=== PATIENT | male | born 1935 | race Caucasian/White ===

== ENCOUNTER 2020-01-04 19:34 | Emergency (ER) | payer MEDICARE ==
[~2020-01-04] VITALS: Ht 172.7 cm; Wt 80.0 kg
--- NOTE | 2020-01-04 19:39 | PHYS DOC ---
Past History Past Medical History: Arthritis, Arrhythmia, CAD, Hypertension Past Surgical History: Angioplasty, Coronary Bypass Surgery, Pacemaker General Adult EDM: Chief Complaint: LACERATION/AVULSION HPI: HPI: ".. That vein or blood vessel on the Lt. ankle just started bleeding...I could not get it to stop.. I am on blood thinners for my heart you see...I even tried to cut off the vein bump ... it just started bleeding more..I just could not get it to stop bleeding.. " Patient is a 84 year old male who presents with above hx and complaints of bleeding from varicose vein. Lt. ankle. Pt. has a S shaped Varicosity Lt. ankle area approximately 4 cm with at least 4 bleeding sites. Pt. is on Eliquist and aspirin for cardiac issues. Pt. states tetanus is upto date. Pt. could not get the bleeding to stop. Pt. normally follow s at [place] and [facility] for cardiac issues. Review of Systems: Review of Systems: Constitutional: Denies fever or chills Eyes: Denies change in visual acuity HENT: Denies nasal congestion or sore throat Respiratory: Denies cough or shortness of breath Cardiovascular: Denies chest pain or edema GI: Denies abdominal pain, nausea, vomiting, bloody stools or diarrhea : Denies dysuria Musculoskeletal: Denies back pain or joint pain Integument: Denies rash -bleeding varicosity left ankle Neurologic: Denies headache, focal weakness or sensory changes Endocrine: Denies polyuria or polydipsia Lymphatic: Denies swollen glands Psychiatric: Denies depression or anxiety Heart Score: Risk Factors: Risk Factors: DM, Current or recent (<one month) smoker, HTN, HLP, family history of CAD, obesity. Risk Scores: Score 0 - 3: 2.5% MACE over next 6 weeks - Discharge Home Score 4 - 6: 20.3% MACE over next 6 weeks - Admit for Clinical Observation Score 7 - 10: 72.7% MACE over next 6 weeks - Early Invasive Strategies Family History: Family History: Non-contributory Current Medications: Current Meds: See Nursing for home meds. Allergies: Allergies: Allergic PCN's Physical Exam: PE: Constitutional: , no acute distress, non-toxic appearance. [] HENT: Normocephalic, atraumatic, bilateral external ears normal, oropharynx moist, no oral exudates, nose normal. [] Eyes: PERRLA, EOMI, conjunctiva normal, no discharge. [] Neck: Normal range of motion, no tenderness, supple, no stridor. [] Cardiovascular:Heart rate regular rhythm, no murmur [, PMI to Lt. ] Lungs & Thorax: Bilateral breath sounds clear to auscultation []Mid line scar. Pacer/Defib. Abdomen: Bowel sounds normal, soft, no tenderness, no masses, no pulsatile masses. [] Skin: Warm, dry, no erythema, no rash. Poor turgor. Venous stasis in lower leg. Has several spider varicosities. Has one S shaped spider varicosity appears to be bleeding from 4 points. Vessel approximately 4 cm long. Back: No tenderness, no CVA tenderness. [] Extremities: No tenderness, no cyanosis, no clubbing, ROM intact, no edema. Arthritic changes. Neurologic: Alert and oriented X 3, normal motor function, normal sensory function, no focal deficits noted. [] Psychologic: Affect anxious judgement normal, mood normal. [] EKG: EKG: [] Radiology/Procedures: Radiology/Procedures: [] Course & Med Decision Making: Course & Med Decision Making Pertinent Labs and Imaging studies reviewed. (See chart for details) []Wound care note: Area of bleeding varicosity cleaned with Betadine and injected with Lidocaine 2% with epi. Suture with 4-0 Vicryl x 8 and dressing with gel foam. Vessel was oversewed to achieve hemostasis. Pt. keep area clean and dry. If becomes wet remove immediately or remove in 3 days. Apply polysporin 4 x day. Hold Aspirin x 1 dose. and Eliquist x 1 dose. Return if any concerns. Follow up with primary. Elevate leg tonight. Site may bleed through the dressing -no need to change dressing tonight. If any concerns return. 1. Bleeding varicosity left leg ankle 4 cm Cecil Disclaimer: Cecil Disclaimer: This electronic medical record was generated, in whole or in part, using a voice recognition dictation system. Departure Departure: Disposition: HOME/RESIDENCE PRIOR TO ADM Condition: STABLE Justification of Admission: Justification of Admission: Justification of Admission Dx: N/A Cecil Disclaimer This chart was dictated in whole or in part using Voice Recognition software in a busy, high-work load, and often noisy Emergency Department environment. It may contain unintended and wholly unrecognized errors or omissions. Dragon Disclaimer This chart was dictated in whole or in part using Voice Recognition software in a busy, high-work load, and often noisy Emergency Department environment. It may contain unintended and wholly unrecognized errors or omissions. MAYO HILLMAN MD Jan 04, 2020 19:39
[2020-01-04] MEDS ORDERED: LIDOCAINE 2%/EPI 1:100,000 20 ML VIAL. IJ ONE (19:45)
[2020-01-04] MEDS ORDERED: GELATIN SPONGE SIZE 12-7MM SPONGE. TP ONE (19:45)
[2020-01-04 19:47] VITALS: BP 95/48
== END 2020-01-04 20:40 | disposition home or self-care (01) ==
LOC: ER 19:34
DX: I83.892 Varicose veins of left lower extremity with other complications (principal); I10 Essential (primary) hypertension; M19.90 Unspecified osteoarthritis, unspecified site; I25.810 Atherosclerosis of coronary artery bypass graft(s) without angina pectoris; Z98.61 Coronary angioplasty status; Z95.0 Presence of cardiac pacemaker; Z88.0 Allergy status to penicillin
CPT/HCPCS: 37799; 99284

== ENCOUNTER 2020-01-23 18:43 | Observation (INO) | payer MEDICARE ==
[~2020-01-23] VITALS: Ht 172.7 cm; Wt 69.5 kg
--- NOTE | 2020-01-23 18:45 | PHYS DOC ---
Past History Past Medical History: A-Fib, Arthritis, Arrhythmia, CAD, Hypertension, [place] Past Surgical History: Angioplasty, Coronary Bypass Surgery, Pacemaker Additional Past Surgical Histo: LEFT HIP SX, BACK SX Alcohol Use: Occasionally General Adult EDM: Chief Complaint: MECHANICAL FALL HPI: HPI: ".. I was out doing trim work on the bushes... and I guess I passed out or got really dizzy...... and hit my face... ripped up my nose... ".."The bushes are red in the fall.. I was working on trim at bottom.. then I got on a step stool.. then got on the 6 foot step ladder.. but it was on an angle.. but I finally realized... it was too unstable... well any way.. I only ate breakfeast... and I probably did not drink enough today... but I guess I got dizzy.. and lizzy passed out ...smashed my nose... I think you where the doctor that suture up my leg the other day... that went pretty well... but I probably need some sutures to this nose... I tried to clean it up.... push the skin back in place... that did not work well.. other than my face.. and bleeding will not stop.. I didnt hurt anything else...." Patient is a 84 year old male who presents with above hx and complaints syncope, contusion to face and nasal laceration. Patient does not remember events prior to the syncope such as fast heart rate, dysrhythmia or his defibrillator going off. Does not know what he hit his nose . Patient does remember being dizziness. 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 Patient normally follows at [place]. Patient is on anticoagulants baby aspirin and Eliquis for A. fib. He also has followed with cardiology at and [facility].. Patient denies any recent changes in meds. Patient has obvious contusions to face bite hicks on tongue and a 6 cm flap laceration to bridge of nose. Patient denies any other injuries currently. Review of Systems: Review of Systems: Constitutional: Denies fever or chills Eyes: Denies change in visual acuity HENT: Denies nasal congestion or sore throat Complaints of head injury. Respiratory: Denies cough or shortness of breath Cardiovascular: Denies chest pain or edema GI: Denies abdominal pain, nausea, vomiting, bloody stools or diarrhea : Denies dysuria Musculoskeletal: Denies back pain or joint pain Integument: Denies rash Neurologic: Denies headache, focal weakness or sensory changes Hx. Dizzy and syncope,. Endocrine: Denies polyuria or polydipsia Lymphatic: Denies swollen glands Psychiatric: Denies depression or anxiety Heart Score: HEART Score for Chest Pain: HEART Score for Chest Pain Response (Comments) Value History Moderately Suspicious 1 ECG Nonspecific Repolarizatio 1 Age > 65 2 Risk Factors 1 or 2 Risk Factors 1 Troponin >1-<3x Normal Limit 1 Total 6 Risk Factors: Risk Factors: DM, Current or recent (<one month) smoker, HTN, HLP, family history of CAD, obesity. Risk Scores: Score 0 - 3: 2.5% MACE over next 6 weeks - Discharge Home Score 4 - 6: 20.3% MACE over next 6 weeks - Admit for Clinical Observation Score 7 - 10: 72.7% MACE over next 6 weeks - Early Invasive Strategies Family History: Family History: Noncontributory to presentation Current Medications: Current Meds: See nursing for home meds Allergies: Allergies: Allergies Coded Allergies Type Severity Reaction Last Updated Verified Penicillins Allergy Intermediate 01/04/20 Yes Physical Exam: PE: Constitutional: Mild distress, non-toxic appearance. [] HENT: Normocephalic, contusions to the face, 6 cm nasal flap laceration, bilateral external ears normal, oropharynx moist, no oral exudates, nose epistaxis stable. . No septal hematoma. Bilateral hearing aids. TMs clear. Very hard of hearing with hearing aids out. Eyes: PERRLA, EOMI, conjunctiva normal, no discharge. [] Neck: Normal range of motion, no tenderness, supple, no stridor. [] No bruits appreciated Cardiovascular: Irregular heart rate irregular rhythm, no murmur [] PMI to the center and right. Lungs & Thorax: Bilateral breath sounds equal apex on auscultation [. There are some] scattered wheezes and rails. Pacer defibrillator on left Abdomen: Bowel sounds normal, soft, no tenderness, no masses, no pulsatile masses. [] Skin: Warm, dry, no erythema, no rash. Contusions. Venous stasis changes in the legs. Old scars. Back: No tenderness, no CVA tenderness. [] Extremities: No tenderness, no cyanosis, no clubbing, ROM intact, no edema. Arthritic changes. Old scars. Venous stasis. Lt. hip scar. Neurologic: Alert and oriented X 3, n moves all extremities on request has distal sensory, no gross focal deficits noted. [] Psychologic: Affect normal, judgement normal, mood normal. [] EKG: EKG: My interpretation EKG shows a irregular rhythm with no obvious P waves. There is right axis deviation and RVH . PVCs [] Abnormal EKG Radiology/Procedures: Radiology/Procedures: [place] [address] IMAGING REPORT Signed PATIENT: DEB SPANN ACCOUNT: [id number] : 1935 LOCATION: ER AGE: 84 SEX: M EXAM STATUS: REG ER ORD. PHYSICIAN: MAYO HILLMAN MD REASON: Syncope, head injury, neck pain PROCEDURE: CT CERVICAL SPINE WO CONTRAST CT head without contrast. Maxillofacial CT without contrast. CT cervical spine without contrast. HISTORY: Syncope, headache, facial abrasions, dizziness. CT head findings: At the left cerebellum there is linear defect likely chronic infarct associated with a 1 cm dense intra-axial calcification of the cerebellum, this may be the sequela of an old infectious or inflammatory process including chronic neurocysticercosis. Mild generalized brain atrophy. No intracranial hemorrhage, mass effect, hydrocephalus or acute ischemic change evident. Bilateral maxillary sinus opacification. Orbits, mastoids and bones are unremarkable. IMPRESSION: No acute intracranial CT abnormality. Maxillofacial CT findings: Opacification and wall hypertrophy of the bilateral maxillary sinuses as well as some calcification in the right maxillary sinus which could indicate calcified inspissated secretions or a mycetoma, or could indicate an allergic fungal sinusitis. No facial bone fracture. Bony orbits intact. Mandible and maxilla intact. No orbital edema or hematoma. IMPRESSION: Facial bones intact. Maxillary sinus opacification and wall hypertrophy bilaterally as well as calcifications within the right maxillary sinus indicating chronic sinus disease, the calcification could represent a mycetoma or could be the sequela of allergic fungal sinusitis. CT cervical spine findings: Arthritic change C1-C2 atlantodental articulation with extensive bone cysts and mild bone spurring with exuberant joint capsule thickening calcification could be due to crystalline arthropathy, the joint capsule thickening may contribute to borderline spinal canal stenosis. Craniocervical junction intact. Cervical vertebral body height and alignment intact. No fracture of the cervical spine. Marked disc height loss at C5-C6 and C6-C7, multilevel cervical disc protrusions, disc osteophytes and uncovertebral and facet spurs with spinal canal and neural foraminal stenoses. Lung apices demonstrate motion artifact however there is probable centrilobular nodularity diffusely. Paraspinal tissues unremarkable. IMPRESSION: 1. No acute osseous injury of the cervical spine. 2. Cervical disc disease is present. 3. Apical centrilobular nodularity suggestive of endobronchial infectious or inflammatory process. ][address] [id number] IMAGING REPORT Signed PATIENT: DEB SPANN ACCOUNT: [id number] : 1935 LOCATION: ER AGE: 84 SEX: M EXAM STATUS: REG ER ORD. PHYSICIAN: MAYO HILLMAN MD REASON: Weakness, chest pain from fall, syncope PROCEDURE: CHEST PA & LATERAL EXAM: CHEST 2 VIEWS. HISTORY: Weakness, chest pain, syncope. COMPARISON: None. FINDINGS: Frontal and lateral views of the chest are obtained. A left-sided pacemaker/defibrillator has its leads in the right atrium, right ventricle and a left cardiac vein. Epicardial pacer pads and leads are noted. There are changes of coronary artery bypass grafting. There are no confluent infiltrates. There is no pneumothorax or pleural effusion. The heart is mildly enlarged. There are atherosclerotic calcifications of the aorta. IMPRESSION: 1. Mild cardiomegaly. Electronically signed by: Mark Coronado MD (01/23/2020 7:29 PM) [facility] DICTATED AND SIGNED BY: LALITA CORONADO MD DATE: 01/23/201928 CC: MAYO HILLMAN MD; PCP,UNKNOWN ~ Course & Med Decision Making: Course & Med Decision Making Pertinent Labs and Imaging studies reviewed. (See chart for details) Procedure note- Laceration repair-laceration cleaned with normal saline and Betadine along edges. Injected laceration with lidocaine 2%. Irrigated with normal saline. Close laceration was 6 Prolene 6-0 simple sutures. The skin was a avulsion type laceration and very thin. At least one half of the laceration flap appeared to be avascular. Bactracin applied. Discussed presentation, testing and treatment plan with , Plan admission for further eval. and tx. Plan Cardiology and Neuro consults. Impression: 1. Head injury-contusion 2. Nasal laceration 6 cm 3. Syncope 4. Elevated BUN and creatinine 28/1.4 5.. Diabetes glucose 145 6. Elevated troponin 0.148 7. Elevated d-dimer 2.0 (patient on anticoagulation Eliquis and aspirin) 8. BNP 2263-CHF diastolic dysfunction 9. Elevated bili direct and total 0.7 /1.3, AST 45, alk [id number] 10. Anemia hemoglobin 9.7 11. History of A. fib 12. Elevated D-dimer 2.0 [] Dragon Disclaimer: Dragon Disclaimer: This electronic medical record was generated, in whole or in part, using a voice recognition dictation system. Departure Departure: Disposition: 01 HOME/RESIDENCE PRIOR TO ADM Condition: STABLE Referrals: PCP,UNKNOWN (PCP) Justification of Admission: Justification of Admission: Justification of Admission Dx: Yes CHF: Cardiac Arrhythmias Dragon Disclaimer This chart was dictated in whole or in part using Voice Recognition software in a busy, high-work load, and often noisy Emergency Department environment. It may contain unintended and wholly unrecognized errors or omissions. Dragon Disclaimer This chart was dictated in whole or in part using Voice Recognition software in a busy, high-work load, and often noisy Emergency Department environment. It may contain unintended and wholly unrecognized errors or omissions. Dragon Disclaimer This chart was dictated in whole or in part using Voice Recognition software in a busy, high-work load, and often noisy Emergency Department environment. It may contain unintended and wholly unrecognized errors or omissions. MAYO HILLMAN MD Jan 23, 2020 18:45
[2020-01-23] MEDS ORDERED: LIDOCAINE 2% 20 ML VIAL. IJ ONE (19:15)
[2020-01-23] MEDS ORDERED: BACITRACIN ZINC TOPICAL OINT PACKET. TP ONE (19:15)
[2020-01-23 19:22] LABS: BASO # 0.1 x10^3/uL (0.0-0.2); BASO % 2 % (0-3); EOS # 0.1 x10^3/uL (0.0-0.7); EOS % 1 % (0-3); HEMATOCRIT 30.1 % (39.0-53.0); HEMOGLOBIN 9.7 g/dL (13.0-17.5); LYMPH # 0.8 x10^3/uL (1.0-4.8); LYMPH % 14 % (24-48); MEAN CORPUSCULAR HEMOGLOBIN 31 pg (25-35); MEAN CORPUSCULAR HGB CONC 32 g/dL (31-37); MEAN CORPUSCULAR VOLUME 95 fL (79-100); MONO # 0.7 x10^3/uL (0.0-1.1); MONO % 13 % (0-9); NEUT # 3.9 x10^3uL (1.8-7.7); NEUT % 70 % (31-73); PLATELET COUNT 186 x10^3/uL (140-400); RED BLOOD COUNT 3.15 x10^6/uL (4.30-5.70); RED CELL DISTRIBUTION WIDTH 16.8 % (11.5-14.5); WHITE BLOOD COUNT 5.6 x10^3/uL (4.0-11.0)
[2020-01-23 19:27] LABS: CALCIUM 8.6 mg/dL (8.5-10.1); CREATININE 1.4 mg/dL (0.7-1.3); GFR 48.3; POTASSIUM 4.3 mmol/L (3.5-5.1)
--- NOTE | 2020-01-23 19:32 | RAD ---
EXAM: CHEST 2 VIEWS. HISTORY: Weakness, chest pain, syncope. COMPARISON: None. FINDINGS: Frontal and lateral views of the chest are obtained. A left-sided pacemaker/defibrillator has its leads in the right atrium, right ventricle and a left cardiac vein. Epicardial pacer pads and leads are noted. There are changes of coronary artery bypass grafting. There are no confluent infiltrates. There is no pneumothorax or pleural effusion. The heart is mildly enlarged. There are atherosclerotic calcifications of the aorta. IMPRESSION: 1. Mild cardiomegaly. Electronically signed by: Mark Coronado MD (01/23/2020 7:29 PM) [facility]
[2020-01-23 19:38] LABS: ALBUMIN 3.2 g/dL (3.4-5.0); C REACTIVE PROTEIN 3.9 mg/L (0-3.3); DIRECT BILIRUBIN 0.7 mg/dL (0.0-0.2); MAGNESIUM 2.1 mg/dL (1.8-2.4); TOTAL BILIRUBIN 1.3 mg/dL (0.2-1.0); TOTAL PROTEIN 6.9 g/dL (6.4-8.2)
[2020-01-23] MEDS: IV RINGERS SOLUTION,LACTATED 1,000 ML IV SCH ×2 (19:50→20:02)
[2020-01-23] MEDS ORDERED: DIPH,PERTUSS(ACELL),TET VAC/PF 0.5 ML SYRINGE. VAX IM ONE (20:00)
--- NOTE | 2020-01-23 20:26 | RAD ---
CT head without contrast. Maxillofacial CT without contrast. CT cervical spine without contrast. HISTORY: Syncope, headache, facial abrasions, dizziness. CT head findings: At the left cerebellum there is linear defect likely chronic infarct associated with a 1 cm dense intra-axial calcification of the cerebellum, this may be the sequela of an old infectious or inflammatory process including chronic neurocysticercosis. Mild generalized brain atrophy. No intracranial hemorrhage, mass effect, hydrocephalus or acute ischemic change evident. Bilateral maxillary sinus opacification. Orbits, mastoids and bones are unremarkable. IMPRESSION: No acute intracranial CT abnormality. Maxillofacial CT findings: Opacification and wall hypertrophy of the bilateral maxillary sinuses as well as some calcification in the right maxillary sinus which could indicate calcified inspissated secretions or a mycetoma, or could indicate an allergic fungal sinusitis. No facial bone fracture. Bony orbits intact. Mandible and maxilla intact. No orbital edema or hematoma. IMPRESSION: Facial bones intact. Maxillary sinus opacification and wall hypertrophy bilaterally as well as calcifications within the right maxillary sinus indicating chronic sinus disease, the calcification could represent a mycetoma or could be the sequela of allergic fungal sinusitis. CT cervical spine findings: Arthritic change C1-C2 atlantodental articulation with extensive bone cysts and mild bone spurring with exuberant joint capsule thickening calcification could be due to crystalline arthropathy, the joint capsule thickening may contribute to borderline spinal canal stenosis. Craniocervical junction intact. Cervical vertebral body height and alignment intact. No fracture of the cervical spine. Marked disc height loss at C5-C6 and C6-C7, multilevel cervical disc protrusions, disc osteophytes and uncovertebral and facet spurs with spinal canal and neural foraminal stenoses. Lung apices demonstrate motion artifact however there is probable centrilobular nodularity diffusely. Paraspinal tissues unremarkable. IMPRESSION: 1. No acute osseous injury of the cervical spine. 2. Cervical disc disease is present. 3. Apical centrilobular nodularity suggestive of endobronchial infectious or inflammatory process. Exposure: One or more of the following individualized dose reduction techniques were utilized for this examination: 1. Automated exposure control 2. Adjustment of the mA and/or kV according to patient size 3. Use of iterative reconstruction technique Electronically signed by: Marcelo Garcia MD (01/23/2020 8:23 PM) [facility]
--- NOTE | 2020-01-23 20:28 | EKG ---
[address] [address] Test Date: 2020-01-23 Test Time: 18:55:14 Pat Name: DEB SPANN Department: Room: Gender: M [employer]ing [employer] Fe[employer] Automatic: : 1935 Requested By: MAYO HILLMAN Order Number: [id number] Reading MD: Measurements Intervals [place] Rate: 78 P: GA: QRS: 150 QRSD: 120 T: -9 QT: 412 QTc: 474 Interpretive Statements IRREGULAR RHYTHM, NO P-WAVE FOUND ABNORMAL RIGHT AXIS DEVIATION RVH WITH REPOLARIZATION ABNORMALITY ABNORMAL ECG RI6.02 No previous ECG available for comparison
[2020-01-23] MEDS ORDERED: ONDANSETRON PF 4 MG/2 ML VIAL. IVP PRN (22:00)
[2020-01-23] MEDS ORDERED: ACETAMINOPHEN 325 MG TABLET PO PRN (22:00)
[2020-01-23 23:29] VITALS: BP 113/73
[2020-01-24] MEDS ORDERED: MULT-246 PO (01:04)
[2020-01-24] MEDS ORDERED: DIGO125T17 PO (01:04)
[2020-01-24] MEDS ORDERED: APIX5TAB3 PO (01:04)
[2020-01-24] MEDS ORDERED: ASPI-630 PO (01:04)
[2020-01-24] MEDS ORDERED: CALC500T30 PO (01:04)
[2020-01-24] MEDS ORDERED: FURO-69 PO (01:04)
[2020-01-24] MEDS ORDERED: SPIR25TA5 PO (01:04)
[2020-01-24] MEDS ORDERED: POTA20TA4 PO (01:04)
[2020-01-24] MEDS ORDERED: CRESTOR20 MG PO (01:04)
[2020-01-24] MEDS ORDERED: FURO-68 PO (01:04)
[2020-01-24] MEDS ORDERED: IPRATRPIUM/ALBUTEROL 0.5/2.5MG 3 ML NEBU. ONE (04:55)
[2020-01-24] MEDS: IPRATRPIUM/ALBUTEROL 0.5/2.5MG 3 ML NEBU. NEB SCH ×3 (05:04→15:23)
[2020-01-24 05:57] VITALS: BP 104/63
[2020-01-24 06:20] LABS: BASO # 0.1 x10^3/uL (0.0-0.2); BASO % 1 % (0-3); EOS # 0.1 x10^3/uL (0.0-0.7); EOS % 2 % (0-3); HEMATOCRIT 27.9 % (39.0-53.0); HEMOGLOBIN 9.1 g/dL (13.0-17.5); LYMPH # 0.9 x10^3/uL (1.0-4.8); LYMPH % 19 % (24-48); MEAN CORPUSCULAR HEMOGLOBIN 31 pg (25-35); MEAN CORPUSCULAR HGB CONC 33 g/dL (31-37); MEAN CORPUSCULAR VOLUME 95 fL (79-100); MONO # 0.8 x10^3/uL (0.0-1.1); MONO % 16 % (0-9); NEUT # 2.9 x10^3uL (1.8-7.7); NEUT % 62 % (31-73); PLATELET COUNT 163 x10^3/uL (140-400); RED BLOOD COUNT 2.95 x10^6/uL (4.30-5.70); RED CELL DISTRIBUTION WIDTH 16.5 % (11.5-14.5); WHITE BLOOD COUNT 4.7 x10^3/uL (4.0-11.0)
[2020-01-24 06:23] LABS: CALCIUM 8.1 mg/dL (8.5-10.1); CREATININE 1.2 mg/dL (0.7-1.3); GFR 57.7
--- NOTE | 2020-01-24 09:28 | RAD ---
Study: BILATERAL DUPLEX CAROTID SONOGRAPHY History: Syncope. Technique: Duplex sonography of the cervical portion of both carotid arteries was performed. Real-time grayscale, color flow Doppler, and Doppler spectral waveform analysis is performed. Findings: Right side: Peak systolic flow velocity of the CCA is 60 to cm/sec. Peak systolic flow velocity of the ICA is 54 cm/sec. The ICA/CCA ratio is 0.77. Peak end diastolic flow velocity of the ICA is 18 cm/sec. The peak systolic velocity of the ECA is 49 cm/sec. Mild echogenic atheromatous plaque such as at the mid common carotid artery. No visible stenosis. Left side: Peak systolic flow velocity of the CCA is 64 cm/sec. Peak systolic flow velocity of the ICA is 47 cm/sec. The ICA/CCA ratio is 0.61. Peak end diastolic flow velocity of the ICA is 17 cm/sec. Peak systolic flow velocity of the ECA is 45 cm/sec. Greater extent of atheromatous plaque relative to the right but without a visible flow-limiting stenosis. Vertebral arteries: Bilateral vertebral arteries demonstrate antegrade flow. IMPRESSION: Left more so than right carotid system atheromatous plaque but there is no hemodynamically significant carotid stenosis. Antegrade vertebral artery flow. PQRS Compliance Statement - Stenosis calculations for CT, MR and conventional angiography are based upon measurement of the distal ICA diameter in accordance with the NASCET methodology. Stenosis calculations for carotid ultrasound studies are derived from validated velocity criteria which are known to correlate with the NASCET methodology. Electronically signed by: RASHAWN DAVIS MD (01/24/2020 9:26 AM) [id number]
--- NOTE | 2020-01-24 10:38 | CONS ---
DATE OF CONSULTATION: 01/24/2020 REFERRING PHYSICIAN: Dr. Castillo CHIEF COMPLAINT: "I got dizzy and fell." HISTORY OF PRESENT ILLNESS: This is an 84-year-old right-handed male who was admitted through Emergency Room after he presented with a fall yesterday while trimming his bushes at home. According to the patient, he felt dizzy, described as unsteadiness. Subsequently, he fell forwards on hard ground, resulted in nasal abrasion and bleed. The patient denies any symptoms of chest pain, shortness of breath or palpitation prior to the fall; however, apparently, he lost his consciousness for unknown period of time, but he was able to crawl and finally stood up without any assistance. Currently, the patient denies headaches, visual disturbances, nausea, vomiting, chest pain, shortness of breath or palpitation. The patient was evaluated in the Emergency Room where initial head CT scan revealed no evidence of acute intracranial process, but it shows chronic sinusitis. EKG revealed absence of P-wave and PVCs and AFib with rate control. The patient stated he had breakfast, but he did not drink much water. PAST MEDICAL HISTORY: Significant for atrial fibrillation, severe osteoarthritis, cardiac arrhythmias, coronary artery disease, hypertension, myocardial infarction, congestive heart failure, anemia. PAST SURGICAL HISTORY: Positive for coronary artery bypass graft in 1989, status post pacemaker placement and defibrillator placement, left hip surgery, angioplasty, and back surgery. FAMILY HISTORY: Mother had pancreatic cancer. Father had myocardial infarction and coronary artery disease. SOCIAL HISTORY: The patient used to be a smoker and he drinks alcohol occasionally. He denies illegal drug use. CURRENT HOME MEDICATIONS: Eliquis 5 mg twice daily, aspirin 81 mg p.o. daily, calcium 500 mg daily, digoxin 125 mcg at bedtime, furosemide 20 mg daily and furosemide 40 mg daily, multivitamins, potassium chloride, Crestor 20 mg daily, spironolactone 12.5 mg daily. ALLERGIES: PENICILLIN. REVIEW OF SYSTEMS: A 10-point review of system was performed as mentioned above in history of present illness, otherwise unremarkable. PHYSICAL EXAMINATION: GENERAL: Well-developed, well-nourished male, not in acute distress. He weighs 69.5 kilos. VITAL SIGNS: Blood pressure 104/63, respiratory rate 18, pulse is 76, temperature 97.4, oxygen saturation 98% on room air. HEENT: Normocephalic with nasal abrasion, otherwise unremarkable. NECK: Supple. Negative for carotid bruit, lymphadenopathy or thyromegaly. LUNGS: Clear to A and P. CARDIOVASCULAR: Irregular rhythm. Normal S1, S2. ABDOMEN: Soft. EXTREMITIES: Negative for cyanosis, clubbing or edema. NEUROLOGIC: Mental Status: The patient is alert and oriented x 3. Speech is fluent. There is no language dysfunction. Memory, judgment, and abstracting thinking are normal. The patient denies hallucination or delusion. Cranial Nerves: Visual green are full. The pupils are reactive to light and accommodation. The extraocular movements are intact. There is no nystagmus. There is no facial motor or sensory deficit. Hearing is intact bilaterally. The palate is elevated symmetrically. Sternocleidomastoid muscles are powerful bilaterally. The patient shrugs his shoulders symmetrically, protrudes his tongue in the midline without fasciculation or atrophy. Motor: No focal muscle bulk was seen. The tone is normal. The strength is 4/5 throughout. Sensory: Revealed normal pinprick, light touch, vibratory and position senses. Deep tendon reflexes were symmetric and hypoactive with absent Achilles responses. Gait: The patient uses a walker for ambulation; however, the stand is steady. LABORATORY DATA: CBC revealed white blood cells of 4.7 thousand, hemoglobin 9.1, hematocrit 27.9, platelet count 163,000. Chemistry revealed sodium of 134, potassium 4, chloride 101, CO2 of 26, BUN 23, creatinine 1.2, glucose 101 and calcium 8.1. AST is high at 45, ALT is normal with troponin level is 0.147 and elevated NPB at 2263. Coagulation: PT is 14.6 and INR is 1.4. D-dimer is high at 2. DIAGNOSTIC DATA: Initial nonenhanced head CT scan revealed right maxillary sinusitis of chronic type, otherwise no intracranial process and chronic infarct with calcification in the cerebellum probably due to old infections and generalized atrophy. CT of the cervical spine revealed no acute injuries, but shows multilevel disk disease, more prominent at C5-C6 and C6-C7. Chest x-ray revealed no evidence of acute cardiopulmonary process, but it shows cardiomegaly. IMPRESSION: 1. Possible syncope, etiology uncertain, probably due to paroxysmal atrial fibrillation, orthostatic hypotension, non-convulsive seizure and dehydration. 2. Multiple medical problems include diastolic congestive heart failure, severe osteoarthritis, coronary artery disease status post coronary artery bypass graft and status post pacemaker and defibrillator placement. Careful rehydration. RECOMMENDATIONS: 1. Await for the result of carotid Doppler study. 2. Continue with current management initiated by Dr. Castillo. The patient is neurologically stable. 3. We will arrange for electroencephalogram on outpatient basis. M Bree FONTAINE MD DR: GINA/selina JOB#: [id number] / [id number]
[2020-01-24 11:08] VITALS: BP 99/64
--- NOTE | 2020-01-24 12:08 | PN ---
DATE: 01/24/2020 SUBJECTIVE: The patient is resting, slightly propped up in bed, in no apparent distress. On questioning him, he denied any complaint. He has had no further episodes of syncope. He denied any chest pain, shortness of breath, orthopnea or paroxysmal nocturnal dyspnea. Denied any dizziness, lightheadedness, or vertigo. PHYSICAL EXAMINATION: GENERAL: When I examined him, he looked well and was clearly in no apparent respiratory distress. No pallor, jaundice, cyanosis or thyromegaly. No jugular venous distention. No limb edema. VITAL SIGNS: His heart rate was 76, blood pressure was 104/63, temperature was 97.4, respiratory rate was 18 and oxygen saturation was 98%. HEAD, EYES, EARS, NOSE AND THROAT: Shows normocephalic. He has laceration to his nose and contusion to the right side of the face. NECK: Supple. HEART: Showed normal first and second heart sounds. No gallop or murmur. CHEST: Clear to auscultation. No crepitation or rhonchi. ABDOMEN: Scaphoid, soft, nontender. NEUROLOGIC: He was grossly intact. His intake and output are incompletely recorded. LABORATORY DATA: His lab work this morning showed a white cell count of 4700, hemoglobin 9, hematocrit 27, MCV 95, and platelet count of 163,000 with normal manual differential. His chemistry showed a serum sodium 134, potassium 4, chloride 101, bicarbonate 26, anion gap of 7, BUN 23, creatinine 1.2, estimated GFR was 57 mL per minute. His glucose 101 and calcium was 8.1. He has 2 more sets of cardiac enzymes, which showed troponin to be less than 0.017. We have already consulted the neurologist and apparently has had bilateral carotid Doppler ultrasound, which showed that the patient has left more so than right carotid system atheromatous plaque, but there is no hemodynamically significant carotid stenosis, antegrade vertebral artery flow. He has 2 sets of cardiac enzymes, which showed troponin to be 0.147. PLAN: My plan is to check his orthostatics and interrogate his pacemaker defibrillator and await the Cardiology team for evaluation and treatment. SKYLAR MACK MD DR: ANNETTE/selina JOB#: [id number] / [id number]
--- NOTE | 2020-01-24 12:55 | HP ---
ADMIT DATE: 01/23/2020 HISTORY OF PRESENT ILLNESS: The patient is an 84-year-old male patient who presented to the Emergency Room with a complaint of syncope, contusion to his face and nasal laceration. The patient does not remember event prior to the syncope such as fast heart rate, dysrhythmias or atrial fibrillation going off. He does not remember what hit his nose. He does remember being dizzy. He said he just finished trimming work on the bushes, he put his tools to the shade and was going back to the patio to sit and apparently passed out and smashed his nose. He normally follows at the [facility]. He is on anticoagulant in the form of Eliquis and a baby aspirin for atrial fibrillation and his recreation instructor is at [facility]. He cannot remember when was the last time his pacemaker or defibrillator were interrogated and cannot remember any recent stress test or change in his medication. He was evaluated in the Emergency Room and his EKG showed ____ rhythm with no obvious T waves. He has also right axis deviation consistent with right ventricular hypertrophy. CT scan of the head without contrast and maxillofacial CT without contrast as well as CT scan of the cervical spine without contrast, all showed no acute intracranial hemorrhage and the facial bone intact, maxillary sinus opacification and wall hypertrophy bilaterally as well as calcification within the right maxillary sinus indicating chronic sinus disease. The calcification could represent ____ and could be sequelae of allergic fungal sinusitis. The cervical spine CT scan showed no acute osseous injury of cervical spine, the cervical disk disease present, apical centrilobular nodularity suggestive of endobronchial infection or inflammatory process. The patient was admitted to consult the cardiology team as well as the neurologist. PAST MEDICAL HISTORY: Significant for what seemed to be cardiac arrest in 1989, coronary artery disease, status post CABG. He also has what seemed to be congestive heart failure, hyperlipidemia, atrial fibrillation, hypertension and severe osteoarthritis. PAST SURGICAL HISTORY: Significant for coronary artery bypass graft surgery in 1989, status post pacemaker placement and defibrillator placement, at the same year has left hip surgery and angioplasty and back surgery. FAMILY HISTORY: His mother at the age of 70 because of pancreatic cancer. Father in his early 60s because of myocardial infarction, coronary artery disease. Has one sister, recently at the age of 88 and was living in a custodial and one younger brother still live, but lives in [place]. SOCIAL HISTORY: The patient is , has 2 sons and 1 grandson. He quit smoking when he was 25 years old and he drinks alcohol, mostly beer or a wine once every 2-3 weeks with pizza according to him. He denied any illegal drug use. He was in the [employer] for 4 years and after that he worked at [employer] for 38 years. He is currently retired. REVIEW OF SYSTEMS: The patient denies any blurring of vision. He did have bilateral cataract extraction, but denied any glaucoma or macular degeneration. Did complain of astigmatism, right eye. He has bilateral hearing aids. Denied any nosebleeds, stuffy nose or postnasal drip. Denied any sore throat, sore tongue, toothache, hoarseness of voice or difficulty swallowing. Denied any nausea or vomiting. Did complain of constipation. He did complain of nocturia, but nobody told him that he has enlarged prostate. He denied any chest pain, shortness of breath, orthopnea or paroxysmal nocturnal dyspnea. Denied any cough, phlegm or hemoptysis. Denied any dizziness, lightheadedness or vertigo. Did have obviously syncopal episode. PHYSICAL EXAMINATION: GENERAL: On arrival to the Emergency Room, he looked well and was clearly in no apparent respiratory distress. No pallor, jaundice, cyanosis or thyromegaly. No jugular venous distension. No lower limb edema. VITAL SIGNS: His heart rate was 86. His blood pressure was 115/76, temperature was 98.3, respiratory rate was 16 and oxygen saturation was 99%. HEAD, EYES, EARS, NOSE AND THROAT: Showed normocephalic, status post laceration of his contusions to his face and 6 cm nasal flap laceration. Bilateral external ears normal. NECK: Supple. HEART: Showed normal first and second heart sounds. No gallop, rub or murmur. CHEST: Shows central trachea, equal bilateral chest expansion, air entry, vesicular sounds. No crepitation or rhonchi. ABDOMEN: Scaphoid, soft, nontender. NEUROLOGIC: He was awake, alert, responding appropriately. All cranial nerves intact. EXTREMITIES: He moves extremities without difficulty. LABORATORY DATA: His lab work on arrival showed a white cell count 5600, hemoglobin 10, hematocrit 30, MCV 95 and platelet count of 186,000. His chemistry showed a serum sodium 135, potassium 4.3, chloride 98, bicarbonate 25, anion gap of 12. His BUN was 28, creatinine 1.4. His glucose was 145, calcium was 8.6, magnesium 2.1. Total bilirubin is 1.3. AST and alkaline phosphatase is slightly elevated. ALT was normal. His creatinine kinase was ____. C-reactive protein was 3.9. Beta-natriuretic peptide was 2263. Total protein 6.9, albumin was 3.2. Serum lipase was 146. His first troponin was 0.148. His prothrombin time, INR and aPTT were normal. D-dimer was elevated at 2. MEDICATIONS: The patient was on following medications: He was on apixaban 5 mg twice a day, digoxin 125 mcg once a day. He is on Crestor 20 mg at bedtime, spironolactone 12.5 mg at noon, aspirin 81 mg once a day, calcium carbonate 500 mg daily, potassium chloride 20 mEq twice a day, furosemide 40 mg once a day. He is also on multivitamin 1 tablet once a day. ASSESSMENT AND PLAN: In summary, this is an 84-year-old male patient who was admitted with syncopal episode. He has multiple medical problems including atrial fibrillation, coronary artery disease, status post coronary artery bypass graft. He has also AICD, history of arrhythmia and cardiac arrest in 1989. His first troponin was slightly elevated at 0.148. His D-dimer is elevated, however, he is already on apixaban. PLAN: My plan is to admit the patient and check 2 more sets of cardiac enzyme, consult the recreation instructor and the neurologist. Meanwhile, continue with all his other medications except perhaps the apixaban and aspirin at least for today. SKYLAR MACK MD DR: ANNETTE/selina JOB#: [id number] / [id number]
[2020-01-24 13:15] VITALS: BP_SYST 105; BP_SYST 128; BP_DIAS 66; BP_DIAS 71
[2020-01-24 13:16] VITALS: BP 109/66
[2020-01-24 13:46] LABS: BARBITURATES NEG (NEG); BENZODIAZEPINES NEG (NEG); CANNABINOIDS NEG (NEG); COCAINE NEG (NEG); METHADONE NEG (NEG); OPIATES NEG (NEG); PHENCYCLIDINE NEG (NEG)
[2020-01-24 13:48] LABS: AMPHETAMINE/METHAMPHETAMINE NEG (NEG)
[2020-01-24 13:59] LABS: BILIRUBIN,URINE NEG (NEG); CLARITY,URINE CLEAR; COLOR,URINE AMBER; GLUCOSE,URINE NEG (NEG); NITRITE,URINE NEG (NEG); RBC,URINE 0 /HPF (0-2)
[2020-01-24 14:00] LABS: BACTERIA,URINE 0 /HPF (0-FEW); SQUAMOUS EPITHELIAL CELL,UR FEW /LPF
--- NOTE | 2020-01-24 14:08 | PDOC2 ---
CONSULT Date of Admission DATE: 01/24/20 TIME: 13:56 Reason for Consult: Syncope Referring Physician: Dr. Castillo Chief Complaint Syncope Source: Chart review, Patient Problem List Problems Medical Problems: (1) Syncope Status: Acute History of Present Illness 84-year-old male apparently finished treatment bushes and was going back onto the patio to sit when he suddenly passed out and fell on his nose. He denied any prior episodes of syncope or near syncope. He has history of coronary artery disease s/p CABG, ischemic cardiomyopathy s/p AICD implantation and usually follows with cardiology at [facility]. He denied any chest pain, orthopnea/PND or palpitations. Past Medical History Coronary artery disease s/p CABG in 1989 Ischemic cardiomyopathy s/p AICD implantation with at least 3 generator changes per patient. Atrial fibrillation, most probably permanent on Eliquis for long-term anticoagulation. Hyperlipidemia Hypertension Past Surgical History Coronary artery bypass surgery AICD implantation Family History Coronary disease, hypertension Social History Patient quit smoking when he was 25 years old, admitted to occasional alcohol intake and denied any drug abuse. Current Medications Current Medications Lactated Ringer's 1,000 ml @ 100 mls/hr Q10H IV Last administered on 01/23/20at 19:50; Start 01/23/20 at 18:46; Stop 01/24/20 at 04:46; Status DC Lidocaine HCl 20 ml 1X ONCE IJ Last administered on 01/23/20at 19:50; Start 01/23/20 at 19:15; Stop 01/23/20 at 19:16; Status DC Bacitracin (Bacitracin Topical Pkt) 2 pkt 1X ONCE TP Last administered on 01/23/20at 19:51; Start 01/23/20 at 19:15; Stop 01/23/20 at 19:16; Status DC Diphtheria/ Pertussis/Tetanus Vacc (ADACEL TDap SYRINGE) 0.5 ml ONCE ONCE VAX IM ; Start 01/23/20 at 20:00; Stop 01/23/20 at 20:01; Status DC Ondansetron HCl (Zofran) 4 mg PRN Q4HRS PRN IVP NAUSEA/VOMITING; Start 01/23/20 at 22:00; Stop 01/24/20 at 21:59 Acetaminophen (Tylenol) 650 mg PRN Q4HRS PRN PO FEVER > 100.3'F; Start 01/23/20 at 22:00; Stop 01/24/20 at 21:59 Albuterol/ Ipratropium (Duoneb) 3 ml RTQID NEB Last administered on 01/24/20at 05:04; Start 01/24/20 at 08:00; Stop 01/25/20 at 07:59 Albuterol/ Ipratropium (Duoneb) 3 ml STK-MED ONCE .ROUTE ; Start 01/24/20 at 04:55; Stop 01/24/20 at 04:56; Status DC Calcium Carbonate/ Glycine (Oscal) 500 mg DAILY PO ; Start 01/25/20 at 09:00 Digoxin (Lanoxin) 125 mcg HS PO ; Start 01/24/20 at 21:00 Multivitamins/ Calcium (Thera-M Plus) 1 tab DAILY PO ; Start 01/25/20 at 09:00 Active Scripts Active Reported Digoxin 125 Mcg Tablet 125 Mcg PO HS Aspirin 81 Mg Tab.chew 81 Mg PO HS Crestor (Rosuvastatin Calcium) 20 Mg Tablet 20 Mg PO HS Spironolactone 25 Mg Tablet 12.5 Mg PO NOON Eliquis (Apixaban) 5 Mg Tablet 5 Mg PO BID Lasix (Furosemide) 40 Mg Tablet 40 Mg PO DAILY Lasix (Furosemide) 20 Mg Tablet 20 Mg PO DAILY16 Klor-Con M20 (Potassium Chloride) 20 Meq Tab.er.prt 20 Meq PO BID Multi-Vitamin Daily (Multivitamin) 1 Each Tablet 1 Tab PO DAILY Calcium (Calcium Carbonate) 500 Mg Tablet 500 Mg PO DAILY Allergies: Coded Allergies: Penicillins (Verified Allergy, Intermediate, 01/04/20) PSYCHOLOGICAL ROS: No: Hallucinations Eyes: No: Loss of vision ENDOCRINE: No: Palpitations Respiratory: No: Hemoptysis, Shortness of breath Cardiovascular: No: Chest Pain Gastrointestinal: No: Vomiting, Diarrhea Genitourinary: No: Henaturia Neurological: YES: Dizziness, Other (Syncope); No: Seizures General: Alert, No acute distress HEENT: Other (Bruises and laceration seen on his nose) Lungs: Clear to auscultation Heart: Regular rate Abdomen: Soft Extremities: No edema Neuro: Normal speech Psych/Mental Status: Mood NL VITALS Vital Signs Date Time Temp Pulse Resp B/P (MAP) Pulse Ox O2 Delivery O2 Flow Rate FiO2 01/24/20 13:16 84 109/66 (80) 01/24/20 11:08 97.9 18 98 Room Air Labs Laboratory Tests Test 01/23/20 19:05 01/23/20 22:30 01/24/20 05:50 01/24/20 13:15 White Blood Count 5.6 x10^3/uL (4.0-11.0) 4.7 x10^3/uL (4.0-11.0) Red Blood Count 3.15 x10^6/uL (4.30-5.70) 2.95 x10^6/uL (4.30-5.70) Hemoglobin 9.7 g/dL (13.0-17.5) 9.1 g/dL (13.0-17.5) Hematocrit 30.1 % (39.0-53.0) 27.9 % (39.0-53.0) Mean Corpuscular Volume 95 fL (79-100) 95 fL (79-100) Mean Corpuscular Hemoglobin 31 pg (25-35) 31 pg (25-35) Mean Corpuscular Hemoglobin Concent 32 g/dL (31-37) 33 g/dL (31-37) Red Cell Distribution Width 16.8 % (11.5-14.5) 16.5 % (11.5-14.5) Platelet Count 186 x10^3/uL (140-400) 163 x10^3/uL (140-400) Neutrophils (%) (Auto) 70 % (31-73) 62 % (31-73) Lymphocytes (%) (Auto) 14 % (24-48) 19 % (24-48) Monocytes (%) (Auto) 13 % (0-9) 16 % (0-9) Eosinophils (%) (Auto) 1 % (0-3) 2 % (0-3) Basophils (%) (Auto) 2 % (0-3) 1 % (0-3) Neutrophils # (Auto) 3.9 x10^3uL (1.8-7.7) 2.9 x10^3uL (1.8-7.7) Lymphocytes # (Auto) 0.8 x10^3/uL (1.0-4.8) 0.9 x10^3/uL (1.0-4.8) Monocytes # (Auto) 0.7 x10^3/uL (0.0-1.1) 0.8 x10^3/uL (0.0-1.1) Eosinophils # (Auto) 0.1 x10^3/uL (0.0-0.7) 0.1 x10^3/uL (0.0-0.7) Basophils # (Auto) 0.1 x10^3/uL (0.0-0.2) 0.1 x10^3/uL (0.0-0.2) Prothrombin Time 14.6 SEC (9.4-11.4) Prothromb Time International Ratio 1.4 (0.9-1.1) Activated Partial Thromboplast Time 27 SEC (23-33) D-Dimer (Manuela) 2.00 mg/L (0.00-0.50) Sodium Level 135 mmol/L (136-145) 134 mmol/L (136-145) Potassium Level 4.3 mmol/L (3.5-5.1) 4.0 mmol/L (3.5-5.1) Chloride Level 98 mmol/L (98-107) 101 mmol/L (98-107) Carbon Dioxide Level 25 mmol/L (21-32) 26 mmol/L (21-32) Anion Gap 12 (6-14) 7 (6-14) Blood Urea Nitrogen 28 mg/dL (8-26) 23 mg/dL (8-26) Creatinine 1.4 mg/dL (0.7-1.3) 1.2 mg/dL (0.7-1.3) Estimated GFR (Cockcroft-Gault) 48.3 57.7 Glucose Level 145 mg/dL (70-99) 101 mg/dL (70-99) Calcium Level 8.6 mg/dL (8.5-10.1) 8.1 mg/dL (8.5-10.1) Magnesium Level 2.1 mg/dL (1.8-2.4) Total Bilirubin 1.3 mg/dL (0.2-1.0) Direct Bilirubin 0.7 mg/dL (0.0-0.2) Aspartate Amino Transf (AST/SGOT) 45 U/L (15-37) Alanine Aminotransferase (ALT/SGPT) 35 U/L (16-63) Alkaline Phosphatase 134 U/L (46-116) Creatine Kinase 279 U/L (39-308) Troponin I Quantitative 0.148 ng/mL (0-0.055) 0.147 ng/mL (0-0.055) 0.147 ng/mL (0-0.055) C-Reactive Protein 3.9 mg/L (0-3.3) IM-Gxm-L-Type Natriuretic Peptide 2263 pg/mL (0-449) Total Protein 6.9 g/dL (6.4-8.2) Albumin 3.2 g/dL (3.4-5.0) Lipase 146 U/L (73-393) Urine Opiates Screen Neg (NEG) Urine Methadone Screen Neg (NEG) Urine Barbiturates Neg (NEG) Urine Phencyclidine Screen Neg (NEG) Urine Amphetamine/Methamphetamine Neg (NEG) Urine Benzodiazepines Screen Neg (NEG) Urine Cocaine Screen Neg (NEG) Urine Cannabinoids Screen Neg (NEG) Urine Ethyl Alcohol Neg (NEG) Assessment/Plan 1. Syncope most probably secondary to dehydration. Recommend intravenous hydration. We will have patient's AICD interrogated to rule out any significant arrhythmias that could have caused syncope. 2. CAD s/p CABG in the past, presently slightly elevated troponin level most probably demand ischemia. Doubt ACS. He is presently chest pain-free. Continue current secondary prevention measures. 3. Ischemic cardiomyopathy s/p AICD implantation. Telemetry showed ventricular paced rhythm. BNP level elevated but he is clinically well compensated. Will obtain records regarding any recent echocardiogram from primary sales and marketing assistant at [facility] who he has an appointment with, in 2 weeks. 4. Atrial fibrillation, most probably permanent. Presently V paced rhythm. Resume Eliquis upon discharge. 5. Hypertension: Controlled 6. Hyperlipidemia: Statins Thank you for your consultation KOKO MOREL MD Jan 24, 2020 14:08
[2020-01-24 15:23] VITALS: BP 104/65
[2020-01-24 19:26] VITALS: BP 109/72
[2020-01-24] MEDS ORDERED: DIGOXIN 125 MCG TABLET PO SCH (21:00)
[2020-01-25] MEDS ORDERED: CALCIUM CARBONATE 500 MG TABLET PO SCH (09:00)
[2020-01-25] MEDS ORDERED: MULTIVITAMIN with MINERAL TABLET. PO SCH (09:00)
== END 2020-01-24 19:57 | disposition home or self-care (01) ==
LOC: ER 18:43 → 1 SOUTH 21:30 → INTOOBSV 21:30
PROVIDERS: ADMIT Internal Medicine; ATTEND Internal Medicine
DX: E86.0 Dehydration (principal); R55 Syncope and collapse; I50.30 Unspecified diastolic (congestive) heart failure; S01.21XA Laceration without foreign body of nose, initial encounter; D64.9 Anemia, unspecified; E11.9 Type 2 diabetes mellitus without complications; E78.5 Hyperlipidemia, unspecified; G31.9 Degenerative disease of nervous system, unspecified; I11.0 Hypertensive heart disease with heart failure; I25.10 Atherosclerotic heart disease of native coronary artery without angina pectoris; I25.2 Old myocardial infarction; I25.5 Ischemic cardiomyopathy; I48.91 Unspecified atrial fibrillation; J32.9 Chronic sinusitis, unspecified; M19.90 Unspecified osteoarthritis, unspecified site; M25.78 Osteophyte, vertebrae; Z79.01 Long term (current) use of anticoagulants; Z79.82 Long term (current) use of aspirin; Z79.899 Other long term (current) drug therapy; Z87.891 Personal history of nicotine dependence; Z95.1 Presence of aortocoronary bypass graft; Z95.810 Presence of automatic (implantable) cardiac defibrillator; W11.XXXA Fall on and from ladder, initial encounter; Y93.89 Activity, other specified; Y92.89 Other specified places as the place of occurrence of the external cause
CPT/HCPCS: 12014; 36415; 70450; 70486; 71046; 72125; 80048; 80061; 80076; 80307; 81001; 82550; 83690; 83735; 83880; 84443; 84484; 85025; 85379; 85610; 85730; 86140; 93005; 93880; 94640; 96360; 96361; 97161; 97165; 99285; G0238; G0378; J2001; J7120; 12013; G0379

== ENCOUNTER 2020-05-27 17:32 | Emergency (ER) | payer MEDICARE ==
[~2020-05-27] VITALS: Ht 180.3 cm; Wt 66.0 kg
[~2020-05-27 17:32] MED LIST: APIX5TAB3 PO; ASPI-630 PO; CALC500T30 PO; CRESTOR20 MG PO; DIGO125T17 PO; FURO-68 PO; FURO-69 PO; MULT-246 PO; POTA20TA4 PO; SPIR25TA5 PO
[2020-05-27] MEDS ORDERED: GELATIN SPONGE SIZE 12-7MM SPONGE. TP ONE (18:00)
--- NOTE | 2020-05-27 18:03 | PHYS DOC ---
Past History Past Medical History: A-Fib (FRANCISCO JAVIER GLOVER APRN) Past Surgical History: Pacemaker, Other Additional Past Surgical Histo: BACK SURGERY (FRANCISCO JAVIER GLOVER APRN) Alcohol Use: Occasionally (FRANCISCO JAVIER GLOVER APRN) Adult General Chief Complaint Chief Complaint: LOWER EXT PAIN HPI HPI Patient is a 85-year-old male patient with history of A. fib currently on Eliquis presenting to the ED today with bleeding on the left lower extremity that began a couple minutes ago. Patient states he was in the shower this evening and stood there for too long, the realized he has bleeding on the left lower extremity. He states he has had this happen to him before. Denies any injuries. (FRANCISCO JAVIER GLOVER APRN) Review of Systems Review of Systems Constitutional: Denies fever or chills [] Eyes: Denies change in visual acuity, redness, or eye pain [] HENT: Denies nasal congestion or sore throat [] Respiratory: Denies cough or shortness of breath [] Cardiovascular: No additional information not addressed in HPI [] GI: Denies abdominal pain, nausea, vomiting, bloody stools or diarrhea [] : Denies dysuria or hematuria [] Musculoskeletal: Denies back pain or joint pain [] Integument: Bleeding from the left lower extremities Neurologic: Denies headache, focal weakness or sensory changes [] All other systems were reviewed and found to be within normal limits, except as documented in this note. (FRANCISCO JAVIER GLOVER APRN) Current Medications Current Medications Current Medications Medications (Trade) Dose Ordered Sig/Elda Start Time Stop Time Status Last Admin Dose Admin Cellulose (Surgicel Hemostat 4x8) 1 each 1X ONCE 05/27/20 18:00 05/27/20 18:01 UNV (FRANCISCO JAVIER GLOVER APRN) Allergies Allergies Allergies Coded Allergies Type Severity Reaction Last Updated Verified Penicillins Allergy Intermediate 05/27/20 Yes (FRANCISCO JAVIER GLOVER APRN) Physical Exam Physical Exam Constitutional: Well developed, well nourished, no acute distress, non-toxic appearance. [] HENT: Normocephalic, atraumatic, bilateral external ears normal, oropharynx moist, no oral exudates, nose normal. [] Eyes: PERRLA, EOMI, conjunctiva normal, no discharge. [] Neck: Normal range of motion, no tenderness, supple, no stridor. [] Cardiovascular:Heart rate regular rhythm, no murmur [] Lungs & Thorax: Bilateral breath sounds clear to auscultation [] Abdomen: Bowel sounds normal, soft, no tenderness, no masses, no pulsatile masses. [] Skin: Distal meza medial aspect with tiny area of what appears to be a bleeding varicose vein, pressure dressing was applied. +2 left pedal pulse. Neurovascular exam is intact to the left lower extremity. Cap refill less than 2 seconds to left lower extremity.Varicose veins noted to the LLE Back: No tenderness, no CVA tenderness. [] Extremities: No tenderness, no cyanosis, no clubbing, ROM intact, no edema. [] Neurologic: Alert and oriented X 3, normal motor function, normal sensory function, no focal deficits noted. [] Psychologic: Affect normal, judgement normal, mood normal. [] (FRANCISCO JAVIER GLOVER APRN) Current Patient Data Vital Signs Vital Signs Date Time Temp Pulse Resp B/P (MAP) Pulse Ox O2 Delivery O2 Flow Rate FiO2 05/27/20 17:43 97.6 71 18 118/71 (87) 100 Room Air (FRANCISCO JAVIER GLOVER APRN) EKG EKG [] (FRANCISCO JAVIER GLOVER APRN) Radiology/Procedures Radiology/Procedures [] (FRANCISCO JAVIER GLOVER APRN) Heart Score Risk Factors: Risk Factors: DM, Current or recent (<one month) smoker, HTN, HLP, family history of CAD, obesity. Risk Scores: Risk Factors: DM, Current or recent (<one month) smoker, HTN, HLP, family history of CAD, obesity. (FRANCISCO JAVIER GLOVER APRN) Course & Med Decision Making Course & Med Decision Making Pertinent Labs and Imaging studies reviewed. (See chart for details) This is a 85-year-old male patient who presents to the ED today with bleeding from the left lower extremity, currently on Eliquis. Bleeding appears arterial. Pressure was applied to the area, bleeding slowed down, Surgicell applied to the area. Surgicel was able to stop the bleeding completely. Discharged to home. (FRANCISCO JAVIER GLOVER APRN) Dragon Disclaimer Dragon Disclaimer This electronic medical record was generated, in whole or in part, using a voice recognition dictation system. (MUTUNGA,FRANCISCO JAVIER [employer]) Dragon Disclaimer Stable, patient seen by me in the ER. Bleeding was controlled with Surgicel dressing. I agreed with treatment plan. 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 Please keep the dressing on until tomorrow evening then remove it. Please avoid taking long showers. Follow up with your doctor in the course of this week. FRANCISCO JAVIER GLOVER APRN May 27, 2020 18:03 LASHELL NULL DO May 28, 2020 01:20
[2020-05-27 19:00] VITALS: BP 113/72
== END 2020-05-27 19:20 | disposition home or self-care (01) ==
LOC: ER 17:32
DX: I83.892 Varicose veins of left lower extremity with other complications (principal); I48.91 Unspecified atrial fibrillation; Z79.01 Long term (current) use of anticoagulants; Z95.0 Presence of cardiac pacemaker; Z88.0 Allergy status to penicillin
CPT/HCPCS: 99284

== ENCOUNTER 2020-06-22 17:02 | Emergency (ER) | payer MEDICARE ==
[~2020-06-22] VITALS: Ht 180.3 cm; Wt 66.0 kg
[2020-06-22 17:14] VITALS: BP 136/54
--- NOTE | 2020-06-22 17:52 | PHYS DOC ---
Past History Past Medical History: A-Fib, Arthritis, Other Past Surgical History: Pacemaker, Other Additional Past Surgical Histo: BACK SURGERY Alcohol Use: Occasionally General Adult EDM: Chief Complaint: OTHER COMPLAINTS HPI: HPI: ".. I got these veins.. that bleed .. in my legs.. I tried to get it stopped at home.. I got an apt. at to tried and get this figured out.. I am on aspirin and eliquis... For my A. fib. ".." I was sitting on a stool.. in shower.. guess I bumped it.. it got bleeding... It would not stop.. Last time had one like this it...It had to be over sutured.. to finally get it stopped...".. 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 Patient has approximately 4 cm varicosity on left medial side of ankle that has multiple sites of bleeding. Area has continued bleed since injury at home, even after prolonged direct pressure and elevation.. Patient is on anticoagulation for his A. fib. Has had previous episodes where varicosities have ruptured and bled very that required ED evaluation and suturing to control the bleeding. The patient follows with Dr. Kojo Kaufman at the [facility]. Reportedly does have a follow-up appointment at for possible surgical treatment of these varicosities in 3 days. Patient states his tetanus is up-to-date. Denies any history of immunosuppression. No history recent travel. No history of severe ill contacts. Has had no change in his anticoagulation regimen. Review of Systems: Review of Systems: Constitutional: Denies fever or chills Eyes: Denies change in visual acuity HENT: Denies nasal congestion or sore throat Respiratory: Denies cough or shortness of breath Cardiovascular: Denies chest pain or edema GI: Denies abdominal pain, nausea, vomiting, bloody stools or diarrhea : Denies dysuria Musculoskeletal: Denies back pain or joint pain Integument: Denies rash . Complains of bleeding from varicosity left ankle. Neurologic: Denies headache, focal weakness or sensory changes Endocrine: Denies polyuria or polydipsia Lymphatic: Denies swollen glands Psychiatric: Denies depression or anxiety Family History: Family History: Noncontributory presentation Current Medications: Current Meds: See nursing for home meds Allergies: Allergies: Allergies Coded Allergies Type Severity Reaction Last Updated Verified Penicillins Allergy Intermediate 05/27/20 Yes Physical Exam: PE: Constitutional: no acute distress, non-toxic appearance. [] HENT: Normocephalic, atraumatic, bilateral external ears normal, oropharynx moist, no oral exudates, nose normal. [] Eyes: PERRLA, EOMI, conjunctiva normal, no discharge. [] Neck: Normal range of motion, no tenderness, supple, no stridor. [] Cardiovascular: Irregular rate and rhythm , no murmur , PMI to the left Lungs & Thorax: Bilateral breath sounds clear to auscultation [] Abdomen: Bowel sounds normal, soft, no tenderness, no masses, no pulsatile masses. [] Skin: Warm, dry, no erythema, no rash. Poor turgor. Varicosities. Venous stasis. Bleeding from torn ruptured varicosity left ankle. Back: No tenderness, no CVA tenderness. [] Extremities: No tenderness, no cyanosis, no clubbing, ROM intact, no edema. Arthritic changes Neurologic: Alert and oriented X 3, moves all extremities on request, has distal sensory, no reports of new focal deficits . Psychologic: Affect anxious, judgement normal, mood normal. [] Current Patient Data: Vital Signs: Vital Signs Date Time Temp Pulse Resp B/P (MAP) Pulse Ox O2 Delivery O2 Flow Rate FiO2 06/22/20 17:14 97.8 72 16 136/54 (81) 99 Room Air EKG: EKG: [] Radiology/Procedures: Radiology/Procedures: [] Heart Score: Risk Factors: Risk Factors: DM, Current or recent (<one month) smoker, HTN, HLP, family history of CAD, obesity. Risk Scores: Score 0 - 3: 2.5% MACE over next 6 weeks - Discharge Home Score 4 - 6: 20.3% MACE over next 6 weeks - Admit for Clinical Observation Score 7 - 10: 72.7% MACE over next 6 weeks - Early Invasive Strategies Course & Med Decision Making: Course & Med Decision Making Pertinent Labs and Imaging studies reviewed. (See chart for details) Procedure [id number] episodes attempt to achieve control of venous bleeding from left ankle varicosity with direct pressure and elevation. Cleaned area with Betadine. Injected area with lidocaine 2% epinephrine. Used Vicryl- 4-0 to over suture torturous torn varicosity. 12 sutures. Antibiotic ointment applied. Gelfoam then applied. Then a direct pressure dressing applied. Appeared to have eventual control of the active bleeding. Patient to hold aspirin x1 day. Patient to hold Eliquis x1 dosage. Leave dressing in place for the next 3 days. Keep follow-up with [facility] specialist for treatment of his varicosities. Warned to monitor closely for signs of infection. Return if any concerns. If bleeding just comes through the dressing leave in place. Do not get dressing wet. If continues to bleed past the dressing return for reevaluation. Return if any concerns. [] Impression: 1. Torn tortuous varicosity left ankle 2. History of A. fib on anticoagulation Cecil Disclaimer: Cecil Disclaimer: This electronic medical record was generated, in whole or in part, using a voice recognition dictation system. Departure Departure: Referrals: ADRIANNE KAUFMAN (PCP) Cecil Disclaimer This chart was dictated in whole or in part using Voice Recognition software in a busy, high-work load, and often noisy Emergency Department environment. It may contain unintended and wholly unrecognized errors or omissions. Dragon Disclaimer This chart was dictated in whole or in part using Voice Recognition software in a busy, high-work load, and often noisy Emergency Department environment. It may contain unintended and wholly unrecognized errors or omissions. MAYO HILLMAN MD Jun 22, 2020 17:52
[2020-06-22] MEDS ORDERED: LIDOCAINE 2%/EPI 1:100,000 20 ML VIAL. IJ ONE (18:15)
[2020-06-22] MEDS ORDERED: GELATIN SPONGE SIZE 12-7MM SPONGE. TP ONE (18:15)
== END 2020-06-22 19:09 | disposition home or self-care (01) ==
LOC: ER 17:02
DX: I83.892 Varicose veins of left lower extremity with other complications (principal); M19.90 Unspecified osteoarthritis, unspecified site; I48.20 Chronic atrial fibrillation, unspecified; Z95.0 Presence of cardiac pacemaker; Z98.890 Other specified postprocedural states; Z88.0 Allergy status to penicillin
CPT/HCPCS: 37799; 99283